=== PATIENT | female | born 1945 | race Caucasian/White ===

== ENCOUNTER 2018-01-21 13:42 | Outpatient (CLI) | payer MEDICARE, BC | END 2018-01-21 13:43 | disposition home or self-care (01) | LOC: BICULT 13:42 | PROVIDERS: ATTEND Specialist | DX: E04.1 Nontoxic single thyroid nodule (principal); E04.2 Nontoxic multinodular goiter | CPT/HCPCS: 76536 ==

== ENCOUNTER 2018-05-18 16:10 | Outpatient (CLI) | payer MEDICARE, BC | END 2018-05-18 16:11 | disposition home or self-care (01) | LOC: BICMAMMO 16:10 | PROVIDERS: ATTEND Obstetrics & Gynecology | DX: Z12.31 Encounter for screening mammogram for malignant neoplasm of breast (principal); N64.89 Other specified disorders of breast | CPT/HCPCS: 77063; 77067 ==

== ENCOUNTER 2018-06-23 14:41 | Outpatient (CLI) | payer MEDICARE, BC ==
--- NOTE | 2018-06-23 16:24 | RAD ---
LUMBAR SPINE TWO VIEWS: 06/23/18 HISTORY: Followup fracture. COMPARISON: None. CORRELATION: MRI of lumbar spine 06/22/18. FINDINGS: Five lumbar type vertebral bodies. There is stable mild compression fracture at L1 with retropulsion. Lucencies along superior end plate suggesting an incompletely healed fracture. No additional fractur es are appreciated. IMPRESSION: Incompletely healed mild compression fracture involving L1. POS: [facility]
== END 2018-06-23 14:42 | disposition home or self-care (01) ==
LOC: TBSIIMAG 14:41
PROVIDERS: ATTEND Neurological Surgery
DX: S22.008A Other fracture of unspecified thoracic vertebra, initial encounter for closed fracture (principal); M48.56XD Collapsed vertebra, not elsewhere classified, lumbar region, subsequent encounter for fracture with routine healing
CPT/HCPCS: 72100

== ENCOUNTER 2018-07-23 14:23 | Outpatient (CLI) | payer MEDICARE, BC ==
--- NOTE | 2018-07-23 14:44 | RAD ---
TWO VIEWS OF THE LUMBAR SPINE 07/23/18 COMPARISON: 06/23/18. HISTORY: Re-evaluate lumbar spine fracture. FINDINGS: An anterior wedge compression fracture with mild osseous retropulsion is again seen at the L1 level. Anterior vertebral height loss measures approximately 45%, not significantly changed, when compared t o the prior exam. There is mild retrolisthesis of L2 on L3 measuring approximately 4-5 mm. There is multilevel lower freddy mbar spine facet hypertrophic change, stable as well. No new fracture is noted. IMPRESSION: Stable L1 fracture deformity with mild osseous retropulsion and stable anterior vertebral body height loss. No new fracture. POS: [facility]
== END 2018-07-23 14:24 | disposition home or self-care (01) ==
LOC: TBSIIMAG 14:23
PROVIDERS: ATTEND Neurological Surgery
DX: S24.101A Unspecified injury at T1 level of thoracic spinal cord, initial encounter (principal); M43.8X6 Other specified deforming dorsopathies, lumbar region
CPT/HCPCS: 72100

== ENCOUNTER 2019-05-24 15:56 | Outpatient (CLI) | payer MEDICARE, BC ==
--- NOTE | 2019-05-24 16:26 | MMO ---
Bilateral MAMMO Bilat Screen [facility]. CLINICAL HISTORY: Patient is 73 years old and is seen for screening. VIEWS: The views performed were: . FILMS COMPARED: The present examination has been compared to prior imaging studies performed at [facility] on 10/24/2015, 12/12/2016 and 05/18/2018, and at [facility] on 09/20/2014. This study has been interpreted with the assistance of computer-aided detection. MAMMOGRAM FINDINGS: There are scattered fibroglandular densities. There are stable benign appearing calcifications seen in both breasts. There are no suspicious masses, suspicious calcifications, or new areas of architectural distortion. IMPRESSION: THERE IS NO MAMMOGRAPHIC EVIDENCE OF MALIGNANCY. A ROUTINE FOLLOW-UP MAMMOGRAM IN 1 YEAR IS RECOMMENDED. THE RESULTS OF THIS EXAM WERE SENT TO THE PATIENT. ACR BI-RADS Category 2 - Benign finding MAMMOGRAPHY NOTE: 1. A negative mammogram report should not delay a biopsy if a dominant of clinically suspicious mass is present. 2. Approximately 10% to 15% of breast cancers are not detected by mammography. 3. Adenosis and dense breasts may obscure an underlying neoplasm. Reported by: REVA LYLE MD Electonically Signed: [id number]
== END 2019-05-24 15:57 | disposition home or self-care (01) ==
LOC: BICMAMMO 15:56
PROVIDERS: ATTEND Internal Medicine
DX: Z12.31 Encounter for screening mammogram for malignant neoplasm of breast (principal)
CPT/HCPCS: 77063; 77067

== ENCOUNTER 2019-06-13 22:02 | Emergency (ER) | payer MEDICARE, BC ==
[2019-06-13] MEDS ORDERED: Morphine 4 MG/ML VIAL ONE (22:29)
[2019-06-13] MEDS ORDERED: Ketorolac Tromethamine 30 MG/ML VIAL ONE (22:29)
--- NOTE | 2019-06-13 22:39 | RAD ---
XR Wrist 3 Rt View STANDARD HISTORY: Wrist pain status post fall. COMPARISON: None. FINDINGS: There is a complex intra-articular fracture of the distal radius. The fracture has a transv erse component as well as an intra-articular component at the level of the lunate compatible with a dye stamp type fracture. The fracture is only minimally depressed by 2 mm. There is some dorsal angul ation to the distal radial fracture. There is a subtle fracture the base of the ulnar styloid. IMPRESSION: Intra-articular distal radial fracture.
[2019-06-13] MEDS ORDERED: PROPOFOL 20 ML ONE (22:55)
--- NOTE | 2019-06-13 23:23 | RAD ---
XR Wrist Rt 2 View HISTORY: Postreduction COMPARISON: None. FINDINGS: The dorsal angulation of the distal radial fracture has been reduced. The slight displaceme nt of the intra-articular component of fracture is not significantly changed. IMPRESSION: Reduction of the dorsal angulation of the distal radial fracture.
== END 2019-06-14 00:04 | disposition home or self-care (01) ==
LOC: ERS 22:02
DX: S52.571A Other intraarticular fracture of lower end of right radius, initial encounter for closed fracture (principal); I10 Essential (primary) hypertension; F32.9 Major depressive disorder, single episode, unspecified; Z79.899 Other long term (current) drug therapy; W18.30XA Fall on same level, unspecified, initial encounter
CPT/HCPCS: 25605; 93005; 96361; 96374; 96375; 99152; J1885; J2270; J2704

== ENCOUNTER 2019-06-16 11:19 | Day surgery (SDC) | payer MEDICARE, BC ==
[~2019-06-16 11:19] MED LIST: Bupivacaine HCl 0.5%/Epinephrine 1:200,000/PF 30 ml Vial ONE; Lidocaine 1% PF 5 ML VIAL ONE; PHENYLEPHRINE-NS 100 MCG/ML 10 ML SYRINGE ONE; PROPOFOL 200 MG/20 ML VIAL ONE
[2019-06-16] MEDS ORDERED: Scopolamine 1.5 mg/72 hour Patch ONE (12:05)
[2019-06-16] MEDS ORDERED: Fentanyl 100 MCG/2 ML VIAL ONE ×2 (12:14→12:16)
[2019-06-16] MEDS ORDERED: Ondansetron PF 4 MG/2 ML Vial ONE (12:14)
[2019-06-16] MEDS ORDERED: Midazolam HCl 2 mg/2 ml Vial ONE (12:14)
[2019-06-16] MEDS ORDERED: Promethazine HCl 25 MG/ML VIAL ONE ×2 (15:02→16:24)
--- NOTE | 2019-06-16 19:23 | RAD ---
EXAM: 3 views of the right wrist HISTORY: Distal radius fracture COMPARISON: 06/13/2019 FINDINGS: 3 limited intraoperative fluoroscopic views of the right wrist shows the patient is status post ORIF of the intra-articular distal radius fracture with a plate and screws. An ulnar styloid process fracture is also seen. IMPRESSION: Status post ORIF of distal radius fracture without evidence of complication.
--- NOTE | 2019-06-17 10:18 | OP ---
DATE OF PROCEDURE: 06/16/2019 PREOPERATIVE DIAGNOSIS: Right intra-articular distal radius fracture. POSTOPERATIVE DIAGNOSIS: Right intra-articular distal radius fracture. PROCEDURE PERFORMED: Open reduction and internal fixation of the right distal radius. ANESTHESIA: General. DOG LICENSE OFFICER SUPERVISOR: Abhinav. TOURNIQUET TIME: Approximately 30 minutes at 250 mmHg. IMPLANTS: Synthes 2.4 mm variable angle LCP, two-column plate. COMPLICATIONS: None. DRAINS: None. SPECIMEN: None. OUTCOME: Near-anatomic alignment. INDICATIONS FOR PROCEDURE: The patient is a 73-year-old lady, status post ground level fall sustaining left intra-articular distal radius fracture with displacement. After discussion with the patient including risks and benefits, we have decided to proceed with open reduction and internal fixation to provide more anatomic alignment and hopefully reduce the overall recovery period. Risks and benefits have been discussed. Risks include, but are not limited to bleeding, infection, nerve injury, malunion, nonunion, loss of limb or life. The patient appears to understand. Consent signed. DESCRIPTION OF PROCEDURE: The patient was brought to the operating room and a time-out was performed followed by induction of general anesthesia. The patient was then positioned supine on the OR table with the right arm on a hand board. A sterile prep and drape were performed. The limb was exsanguinated with Esmarch bandage, tourniquet inflated to 250 mmHg. Next, a volar radial skin incision was made exploiting the interval between the flexor carpi radialis and the brachioradialis. Dissection was carried down. The neurovascular bundle was identified and reflected radially. The pronator quadratus was then identified and sharply released off the radial border of the distal radius and swept to the midline revealing the underlying fracture and distal radial metaphysis. The fracture hematoma was lavaged from the wound and then the fracture was reduced under direct visual guidance. Once reduced, a single 0.062 K-wire was passed from the tip of the radial styloid across the fracture into the more proximal radial metaphysis to provide provisional stabilization. A plate was then applied to the volar surface of the distal radius and held in place with a 2.7 mm cortical screw proximal to the fracture line. This was then checked with AP and lateral C-arm imaging to ensure that the fracture was near anatomically reduced and the plate appropriately positioned. Next, a total of 4 locking screws were placed in the horizontal limb of the plate capturing the distal fragment. This was followed by two more cortical screws proximally. The K-wire was then removed and AP and lateral C-arm images showed near-anatomic alignment with appropriate positioning of hardware. Next, the wound was irrigated with bulb syringe and closed in layers with 0 Vicryl deep, followed by 2-0 Vicryl, and nylon for the skin. A Xeroform gauze, Webril, and fiberglass splint was applied to the arm and then, the patient was taken to recovery room in stable condition. There were no complications. She tolerated the procedure well. Job ID: [id number]
== END 2019-06-16 17:13 | disposition home or self-care (01) ==
LOC: SDC 11:19
PROVIDERS: ATTEND Orthopaedic Surgery
PROC: 0PSH04Z Reposition Right Radius with Internal Fixation Device, Open Approach (ICD-10-PCS; principal; 2019-06-16)
PROC: 3E0T3BZ Introduction of Anesthetic Agent into Peripheral Nerves and Plexi, Percutaneous Approach (ICD-10-PCS; 2019-06-16)
DX: S52.571A Other intraarticular fracture of lower end of right radius, initial encounter for closed fracture (principal); S52.614A Nondisplaced fracture of right ulna styloid process, initial encounter for closed fracture; G89.18 Other acute postprocedural pain; I10 Essential (primary) hypertension; F32.9 Major depressive disorder, single episode, unspecified; Z79.899 Other long term (current) drug therapy; X50.1XXA Overexertion from prolonged static or awkward postures, initial encounter; Y92.002 Bathroom of unspecified non-institutional (private) residence as the place of occurrence of the external cause; Z91.011 Allergy to milk products; Z91.030 Bee allergy status
CPT/HCPCS: 25608; 64415; 73110; 76000; C1713 ×2; J0670; J0690; J2001; J2250; J2405; J2550; J2704; J3010

== ENCOUNTER 2019-07-12 13:53 | Outpatient (CLI) | payer MEDICARE, BC ==
--- NOTE | 2019-07-12 14:29 | BD ---
BONE DENSITOMETRY USING DEXA: HISTORY: Postmenopausal screening for osteoporosis. FINDINGS: Lumbar Spine: BMD (g/cm2) L1 0.762 T-Score: -2.1 Z-Score: 0.1 L2 0.907 T-Score: -1.1 Z-Score: 1.3 L3 0.791 T-Score: -2.7 Z-Score: -0.1 L4 0.741 T-Score: -2.9 Z-Score: -0.3 L1-L4 0.798 T-Score: -2.3 Z-Score: 0.2 Femoral Neck: 0.627 T-Score: -2.0 Z-Score: 0.1 Total Femur: 0.872 T-Score: -0.6 Z-Score: 1.3 There has been interval reduction of 5.3% in the BMD of the lumbar spine and reduction of 1.9% in the BMD of the proximal femur since 04/14/2015. Impression: Osteopenia. POS: [facility]
== END 2019-07-12 13:54 | disposition home or self-care (01) ==
LOC: BICMAMMO 13:53
PROVIDERS: ATTEND Obstetrics & Gynecology
DX: M81.0 Age-related osteoporosis without current pathological fracture (principal); M85.80 Other specified disorders of bone density and structure, unspecified site
CPT/HCPCS: 77080

== ENCOUNTER 2021-08-22 11:02 | Outpatient (CLI) | payer MEDICARE, BC | END 2021-08-22 11:03 | disposition home or self-care (01) | LOC: BICMAMMO 11:02 | PROVIDERS: ATTEND Internal Medicine | DX: Z12.31 Encounter for screening mammogram for malignant neoplasm of breast (principal) | CPT/HCPCS: 77063; 77067 ==

== ENCOUNTER 2025-06-07 11:03 | Day surgery (SDC) | payer MEDICARE, BC ==
[2025-06-03 13:10] VITALS: BMI 30.1
[2025-06-07] MEDS ORDERED: metroNIDAZOLE 500 MG (100 mL) BAG ONE (11:34)
[2025-06-07] MEDS ORDERED: Acetaminophen 325 MG TAB ONE (11:34)
[2025-06-07] MEDS ORDERED: Rocuronium Bromide 10 MG/ML (10ML VIAL) ONE (12:02)
[2025-06-07] MEDS ORDERED: fentaNYL PF 100 MCG/2 ML SYRINGE ONE (12:02)
[2025-06-07] MEDS ORDERED: Lidocaine 1% PF 5 ML VIAL ONE (12:02)
[2025-06-07] MEDS ORDERED: Ondansetron PF 4 MG/2 ML Vial ONE (12:02)
[2025-06-07] MEDS ORDERED: PROPOFOL 20 ML ONE (12:02)
[2025-06-07] MEDS ORDERED: Scopolamine 1 mg/72 hour Patch ONE (12:26)
[2025-06-07] MEDS ORDERED: CEFAZOLIN 2 GM VIAL ONE (12:53)
[2025-06-07] MEDS ORDERED: Bupivacaine 0.25% HCL 30 ML VIAL ONE (13:34)
[2025-06-07] MEDS ORDERED: SUGAMMADEX SODIUM 200 MG/2 ML VIAL ONE (13:36)
== END 2025-06-07 16:20 | disposition home or self-care (01) ==
LOC: SDC 11:03
PROVIDERS: ATTEND Surgery
PROC: 0DQP7ZZ Repair Rectum, Via Natural or Artificial Opening (ICD-10-PCS; principal; 2025-06-07)
DX: K62.3 Rectal prolapse (principal); Z91.030 Bee allergy status; Z90.49 Acquired absence of other specified parts of digestive tract
CPT/HCPCS: 45378; 45505; J0169; J0665; J1100; J2405; J2550; J2704